=== PATIENT | male | born 1985 | race Caucasian/White ===

== ENCOUNTER 2022-10-30 08:35 | Emergency (ER) | payer OTHER, BC, SELFPAY ==
[2022-10-30 08:43] VITALS: BP 147/99; PULSE 69; RESP 18; TEMP 36.6; O2SAT 98; BMI 29.5
--- NOTE | 2022-10-30 09:08 | ED_ITS ---
HPI - General Adult General Chief complaint: Laceration/Wound Stated complaint: left hand laceration/work comp Time Seen by Provider: 10/30/22 08:57 Source: patient Mode of arrival: ambulatory Limitations: no limitations History of Present Illness HPI narrative: 37-year-old male coming in today concerned about a laceration to the 2nd digit of the left hand that he sustained while at work less than an hour ago. 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 Denies any other injury. Tetanus shot is up today. Related Data Allergies Allergy/AdvReac Type Severity Reaction Status Date / Time seasonal Allergy Uncoded 10/30/22 08:43 Review of Systems Status of ROS: Reports: 6 or more systems reviewed and unremarkable except as noted in History and below PFSH [facility] Social History Smoking Status: Never smoker Do you use any of these nicotine containing products: None Second hand tobacco smoke exposure: No How often do you have a drink containing alcohol: 2-3 times a week How many standard drinks containing alcohol do you have on a typical day: 3 or 4 How often do you have six or more drinks on one occasion: Monthly AUDIT-C Alcohol total score: 6 Non-prescribed substance use: denies use service: No Exam Narrative: Exam Narrative: Well-nourished well-developed patient in no acute distress. Alert and oriented. Answers questions appropriately. Mood and affect are appropriate. Thoughts are goal oriented and rational. No tangential or magical thinking noted. Patient speaks in full sentences without needing to catch their breath. Extremities: Patient has a very small laceration that penetrates through the dermis but does not penetrate into the subcutaneous tissue, located at the lateral side of the PIP of the 2nd digit on the dorsal surface of the hand. Const: Vital Signs, click to edit/add: Vital Signs - 24 hr 10/30/22 08:43 Temperature 97.8 F Pulse Rate [Pulse Oximeter] 69 Respiratory Rate 18 Blood Pressure [Ri ght Upper Arm] 147/99 H Pulse Oximetry 98 Oxygen Delivery Me thod Room Air Course Course Hospital Course: Local anesthesia was placed at the site of the laceration, wound was cleaned with wound cleanser and explored, 1 suture with 4-0 Ethilon was placed without difficulty. Vital Signs Vital signs: Initial Vital Signs Temperature 97.8 F 10/30/22 08:43 Temperature Source Temporal Artery Scan 10/30/22 08:43 Pulse Rate 69 10/30/22 08:43 Pulse Rhythm Regular 10/30/22 08:43 Respiratory Rate 18 10/30/22 08:43 Blood Pressure 147/99 H 10/30/22 08:43 Blood Pressure Mean 115 H 10/30/22 08:43 Blood Pressure Position Sitting 10/30/22 08:43 Pulse Oximetry 98 10/30/22 08:43 Oxygen Delivery Method Room Air 10/30/22 08:43 Vital Signs Temperature 97.8 F 10/30/22 08:43 Pulse Rate 69 10/30/22 08:43 Respiratory Rate 18 10/30/22 08:43 Blood Pressure 147/99 H 10/30/22 08:43 Pulse Oximetry 98 10/30/22 08:43 Oxygen Delivery Method Room Air 10/30/22 08:43 Temperature 97.8 F 10/30/22 08:43 Pulse Rate 69 10/30/22 08:43 Respiratory Rate 18 10/30/22 08:43 Blood Pressure 147/99 H 10/30/22 08:43 Pulse Oximetry 98 10/30/22 08:43 Oxygen Delivery Method Room Air 10/30/22 08:43 Medical Decision Making MDM Narrative Medical decision making narrative: Finger laceration treated per above. We discussed wound hygiene, signs and symptoms of infection, reasons to return for follow-up, and suture removal in 5- 7 days. Patient was in agreement and had no other questions. Discharge Plan Discharge Clinical Impression: Laceration Patient Disposition: Home, Self-Care Condition: Improved Additional Instructions: Keep wound clean and dry. Okay to shower as usual but do not soak the hand. Keep it covered when you are working. Be mindful not to bend it, suture may get pulled out. Watch for signs of infection which include redness of the finger, drainage of pus or increasing pain-if this occurs follow-up with your primary care provider right away. Suture should be removed in approximately 1 week with your primary care provider. Stand Alone Forms: [facility] Info Instructions
--- NOTE | 2022-10-30 09:30 | ED.NURSE ---
wound was dressed with bacitracin, bandaid and coban. has [address] melgar.
== END 2022-10-30 09:30 | disposition home or self-care (01) ==
LOC: ED 09:27
PROVIDERS: Emergency Provider Family Medicine
DX: S61.211A Laceration without foreign body of left index finger without damage to nail, initial encounter (principal); W26.8XXA Contact with other sharp object(s), not elsewhere classified, initial encounter; Y99.0 Civilian activity done for income or pay
CPT/HCPCS: 12001; 99283; 99284

== ENCOUNTER 2023-01-11 07:18 | Emergency (ER) | payer BC, SELFPAY ==
[2023-01-11 07:26] VITALS: BP 149/98; PULSE 75; RESP 16; TEMP 36.5; O2SAT 98; BMI 28.1
--- NOTE | 2023-01-11 07:39 | CRLHL7_ITS ---
For Patients: As a result of the Century Cures Act, medical imaging exams and procedure reports are released immediately into your electronic medical record. You may view this report before your referring provider. If you have questions, please contact your health care provider. INDICATION: Headache. TECHNIQUE: CT head without contrast. COMPARISON: None. FINDINGS: CSF spaces: Within normal limits for age. Brain parenchyma and extra-axial spaces: The redmond-white differentiation is normal. No sign of mass, hemorrhage, or midline shift. No extra-axial fluid collection. Skull base and calvarium: Minimal right frontal, bilateral ethmoid and left maxillary sinus mucosal thickening. Sphenoid and right maxillary sinus nodular mucosal thickening consistent mucous retention cysts. Bilateral middle turbinate yessenia lamella. Paradoxical outward rotation of the right middle turbinate. The visualized orbits are grossly unremarkable. No skull fractures. IMPRESSION: No intracranial mass, hemorrhage, hydrocephalus or acute cortical infarct. Please note that all CT scans at this facility use dose modulation, iterative reconstruction, and/or weight-based dosing when appropriate to reduce radiation dose to as low as reasonably achievable. Dictated by Gabriel Benjamin MD @ 01/11/2023 8:30:48 AM (Electronically Signed)
--- NOTE | 2023-01-11 07:39 | ED.HA ---
HPI - Headache General Time Seen by Provider: 07:39 <Jacinto Sanford MD - Last Filed: 01/11/23 07:43> Date Seen: 01/11/23 <Jacinto Sanford MD - Last Filed: 01/11/23 07:43> Chief Complaint: Headache/Migraine <Jacinto Sanford MD - Last Filed: 01/11/23 07:43> Stated Complaint: migraine/headache <Jacinto Sanford MD - Last Filed: 01/11/23 07:43> Time Seen by Provider: 01/11/23 07:44 <Jacinto Sanford MD - Last Filed: 01/11/23 07:43> Source: patient, family, RN notes reviewed and old records reviewed <Jacinto Sanford MD - Last Filed: 01/11/23 07:43> Mode of arrival: ambulatory <Jacinto Sanford MD - Last Filed: 01/11/23 07:43> Limitations: no limitations <Jacinto Sanford MD - Last Filed: 01/11/23 07:43> History of Present Illness HPI Narrative: 37-year-old male who comes in today with intermittent dated headache for about 2 months. He has these through 4 times a day but they do resolve in between. Pain is around the head, no vomiting but some nausea and some photophobia. Pain is worse when he is up and around, not worse lying down. No neck pain. No history of head trauma. About 6 days ago he snorted some warm water up his nose and he is concerned about ?brain eating amoeba that he read about online. Additionally he has seen his primary care doctor for this and was prescribed amoxicillin which did not help. Does note some sinus congestion but no fevers or cough. <Jacinto Sanford MD - Last Filed: 01/11/23 07:43> Related Data Home Medications: Home Medications Medication Instructions Recorded Confirmed amoxicillin 875 mg tablet 875 mg PO BID 01/11/23 01/11/23 <Jacinto Sanford MD - Last Filed: 01/11/23 07:43> Allergies/Adverse Reactions: Allergies Allergy/AdvReac Type Severity Reaction Status Date / Time seasonal Allergy Uncoded 10/30/22 08:43 <Jacinto Sanford MD - Last Filed: 01/11/23 07:43> [facility] Social History: Social History Smoking Status: Never smoker Do you use any of these nicotine containing products: None Second hand tobacco smoke exposure: No How often do you have a drink containing alcohol: never How many standard drinks containing alcohol do you have on a typical day: 3 or 4 How often do you have six or more drinks on one occasion: Monthly AUDIT-C Alcohol total score: 3 Non-prescribed substance use: denies use service: No <Jacinto Sanford MD - Last Filed: 01/11/23 07:43> Exam Narrative: Exam Narrative: General: Well-developed and well-nourished, no acute distress Head: Atraumatic and normocephalic Eyes: Pupils are equal reactive, extraocular motions intact, conjunctiva clear ENT: External nose and ears are normal, posterior pharynx without erythema or exudate Neck: No midline cervical tenderness, full spontaneous range of motion the neck, trachea midline, no adenopathy Heart: Regular rate and rhythm no murmurs or thrills Lungs: Clear to auscultation bilaterally without wheezes or crackles Abdomen: Soft, nontender, nondistended with active bowel sounds Musculoskeletal: No tenderness, deformity, or edema Neurologic: Awake, alert, and oriented x3, no gross focal neurologic deficits, cranial nerves intact as tested Psych: Mood and affect are appropriate Skin: No rashes <Jacinto Sanford MD - Last Filed: 01/11/23 07:43> Const: Vital Signs, click to edit/add: Vital Signs - 24 hr 01/11/23 07:26 Temperature 97.7 F Pulse Rate [Pulse Oximeter] 75 Respiratory Rate 16 Blood Pressure [Ri ght Upper Arm] 149/98 H Pulse Oximetry 98 Oxygen Delivery Me thod Room Air <Jacinto Sanford MD - Last Filed: 01/11/23 07:43> Vital Signs, click to edit/add: Vital Signs - 24 hr 01/11/23 07:26 Temperature 97.7 F Pulse Rate [Pulse Oximeter] 75 Respiratory Rate 16 Blood Pressure [Ri ght Upper Arm] 149/98 H Pulse Oximetry 98 Oxygen Delivery Me thod Room Air <Carmen Casper MD - Last Filed: 01/11/23 09:01> Course Course Hospital Course: Patient seen examined, prior records reviewed. Patient presents today with headache. This is bandlike around the head occurring intermittently daily for the last couple of months. Associated photophobia but no other symptoms. No red flag symptoms. Symptoms are most consistent with tension headache. Patient is concerned about getting some warm water up his nose in the shower about a week ago, reassured him that treated water is not a risk for Naegleria as this is found in untreated fresh water and is rare in any case. Toradol, fluids, Decadron ordered moved also head CT given patient's high anxiety about intracranial pathology although clinically this is unlikely. Anticipate sign out to oncoming provider. <Jacinto Sanford MD - Last Filed: 01/11/23 07:43> Reevaluation(s) Time of Reevaluation #1: 08:59 <Carmen Casper MD - Last Filed: 01/11/23 09:01> Reevaluation #1: Have reviewed the normal head CT, no acute findings within the brain for this patient. He is reassured by this. His symptoms have improved with treatments given. We discussed that he really needs to follow up in clinic outpatient, consider neurology referral, potentially even physical therapy referral if they do think there is a component of this being a tension-type headache. We did discuss that the steroids given may have continued affects for some time. We will discharge to home at this point. <Carmen Casper MD - Last Filed: 01/11/23 09:01> Vital Signs Vital signs: Initial Vital Signs Temperature 97.7 F 01/11/23 07:26 Temperature Source Temporal Artery Scan 01/11/23 07:26 Pulse Rate 75 01/11/23 07:26 Pulse Rhythm Regular 01/11/23 07:26 Respiratory Rate 16 01/11/23 07:26 Blood Pressure 149/98 H 01/11/23 07:26 Blood Pressure Mean 115 H 01/11/23 07:26 Blood Pressure Position Supine 01/11/23 07:26 Pulse Oximetry 98 01/11/23 07:26 Oxygen Delivery Method Room Air 01/11/23 07:26 Vital Signs Temperature 97.7 F 01/11/23 07:26 Pulse Rate 75 01/11/23 07:26 Respiratory Rate 16 01/11/23 07:26 Blood Pressure 149/98 H 01/11/23 07:26 Pulse Oximetry 98 01/11/23 07:26 Oxygen Delivery Method Room Air 01/11/23 07:26 Temperature 97.7 F 01/11/23 07:26 Pulse Rate 75 01/11/23 07:26 Respiratory Rate 16 01/11/23 07:26 Blood Pressure 149/98 H 01/11/23 07:26 Pulse Oximetry 98 01/11/23 07:26 Oxygen Delivery Method Room Air 01/11/23 07:26 <Jacinto Sanford MD - Last Filed: 01/11/23 07:43> Initial Vital Signs Temperature 97.7 F 01/11/23 07:26 Temperature Source Temporal Artery Scan 01/11/23 07:26 Pulse Rate 75 01/11/23 07:26 Pulse Rhythm Regular 01/11/23 07:26 Respiratory Rate 16 01/11/23 07:26 Blood Pressure 149/98 H 01/11/23 07:26 Blood Pressure Mean 115 H 01/11/23 07:26 Blood Pressure Position Supine 01/11/23 07:26 Pulse Oximetry 98 01/11/23 07:26 Oxygen Delivery Method Room Air 01/11/23 07:26 Vital Signs Temperature 97.7 F 01/11/23 07:26 Pulse Rate 75 01/11/23 07:26 Respiratory Rate 16 01/11/23 07:26 Blood Pressure 149/98 H 01/11/23 07:26 Pulse Oximetry 98 01/11/23 07:26 Oxygen Delivery Method Room Air 01/11/23 07:26 Temperature 97.7 F 01/11/23 07:26 Pulse Rate 75 01/11/23 07:26 Respiratory Rate 16 01/11/23 07:26 Blood Pressure 149/98 H 01/11/23 07:26 Pulse Oximetry 98 01/11/23 07:26 Oxygen Delivery Method Room Air 01/11/23 07:26 <Carmen Casper MD - Last Filed: 01/11/23 09:01> MDM - Headache Imaging Data CT scan - head: Attestation: I have reviewed the pertinent imaging results. <Carmen Casper MD - Last Filed: 01/11/23 09:01> Radiologist's impression: Patient: NATALIIA MATTA Facility:?[facility] Patient ID:?[id number] Site Patient ID:?[id number]. Site :?[id number] Study:?CT Head WITHOUT-01/11/2023 8:24:02 AM Ordering Physician:Radha Casey Final Report: INDICATION: Headache. TECHNIQUE: CT head without contrast. COMPARISON: None. FINDINGS: CSF spaces: Within normal limits for age. Brain parenchyma and extra-axial spaces: The redmond-white differentiation is normal. No sign of mass, hemorrhage, or midline shift. No extra-axial fluid collection. Skull base and calvarium: Minimal right frontal, bilateral ethmoid and left maxillary sinus mucosal thickening. Sphenoid and right maxillary sinus nodular mucosal thickening consistent mucous retention cysts. Bilateral middle turbinate yessenia lamella. Paradoxical outward rotation of the right middle turbinate. The visualized orbits are grossly unremarkable. No skull fractures. IMPRESSION: No intracranial mass, hemorrhage, hydrocephalus or acute cortical infarct. Please note that all CT scans at this facility use dose modulation, iterative reconstruction, and/or weight-based dosing when appropriate to reduce radiation dose to as low as reasonably achievable. Dictated by Gabriel Benjamin MD @ 01/11/2023 8:30:48 AM (Electronic Signature) <Carmen Casper MD - Last Filed: 01/11/23 09:01> Discharge Plan Discharge Clinical Impression: Tension headache <Jacinto Sanford MD - Last Filed: 01/11/23 07:43> Patient Disposition: Home, Self-Care <Jacinto Sanford MD - Last Filed: 01/11/23 07:43> Condition: Stable <Jacinto Sanford MD - Last Filed: 01/11/23 07:43> Instructions: Tension Headache (ED), Acute Headache (ED) <Jacinto Sanford MD - Last Filed: 01/11/23 07:43> Additional Instructions: Please schedule follow-up with your primary care provider to further discuss your headaches. May need to consider physical therapy, a neurology referral, ultimately defer to your primary provider. <Jacinto Sanford MD - Last Filed: 01/11/23 07:43> Activity Level: No Restrictions <Jacinto Sanford MD - Last Filed: 01/11/23 07:43> No Restrictions <Carmen Casper MD - Last Filed: 01/11/23 09:01> Discharge Diet: Regular <Jacinto Sanford MD - Last Filed: 01/11/23 07:43> Regular <Carmen Casper MD - Last Filed: 01/11/23 09:01> Prescriptions: No Action amoxicillin 875 mg tablet 875 mg PO BID <Jacinto Sanford MD - Last Filed: 01/11/23 07:43> Follow Up/Referrals: Provider,Not a Local [Primary Care Provider] - <Jacinto Sanford MD - Last Filed: 01/11/23 07:43> Stand Alone Forms: [facility] Info Instructions <Jacinto Sanford MD - Last Filed: 01/11/23 07:43>
[2023-01-11] MEDS: 0.9 % SODIUM CHLORIDE 1000 ml 1,000 ML IV (07:49)
[2023-01-11] MEDS: KETOROLAC 15 MG/ML inj IVP (07:50)
[2023-01-11] MEDS: dexAMETHasone 4 MG/ML VIAL 10 MG IV (07:51)
[2023-01-11 09:08] VITALS: BP 123/85; PULSE 67; RESP 16; TEMP 36.5; O2SAT 98
== END 2023-01-11 09:11 | disposition home or self-care (01) ==
LOC: ED 08:03
PROVIDERS: Emergency Provider Family Medicine
DX: G44.209 Tension-type headache, unspecified, not intractable (principal)
CPT/HCPCS: 70450; 96374; 96375; 99284; J1100; J1885; J7030